=== PATIENT | male | born 1995 | race Caucasian/White ===

== ENCOUNTER 2017-04-14 18:02 | Emergency (ER) | payer MEDICAID | END 2017-04-14 20:30 | disposition home or self-care (01) | LOC: D.ER 18:02 | DX: B35.3 Tinea pedis (principal); L25.9 Unspecified contact dermatitis, unspecified cause ==

== ENCOUNTER 2017-07-30 12:51 | Emergency (ER) | payer MEDICAID | END 2017-07-30 15:11 | disposition home or self-care (01) | LOC: D.ER 12:51 | DX: M25.532 Pain in left wrist (principal); S62.502A Fracture of unspecified phalanx of left thumb, initial encounter for closed fracture; W19.XXXA Unspecified fall, initial encounter; Y93.51 Activity, roller skating (inline) and skateboarding; Y92.410 Unspecified street and highway as the place of occurrence of the external cause; F17.200 Nicotine dependence, unspecified, uncomplicated ==